=== PATIENT | male | born 1965 | race American Indian/Alaskan Native ===

== ENCOUNTER 2021-08-19 02:29 | Inpatient (IN) | payer SELFPAY ==
[2021-08-19] MEDS ORDERED: ASPIRIN 325 MG TAB PO ONE (02:45)
[2021-08-19 03:17] LABS: Basophils # (Auto) 0.1 K/mm3 (0.0-0.1); Eosinophils # (Auto) 0.3 K/mm3 (0.0-0.4); Hematocrit 43.7 % (35.5-45.6); Hemoglobin 14.4 gm/dl (11.8-15.2); Lymphocytes # (Auto) 1.5 K/mm3 (1.2-5.4); Lymphocytes % (Auto) 19.8 % (13.4-35.0); Mean Corpuscular HGB Conc 33 % (32-34); Mean Corpuscular Volume 86 fl (84-94); Monocytes # (Auto) 0.5 K/mm3 (0.0-0.8); Monocytes % (Auto) 6.6 % (0.0-7.3); Platelet Count 183 K/mm3 (140-440); Red Blood Count 5.07 M/mm3 (3.65-5.03); Red Cell Distribution Width 15.5 % (13.2-15.2)
[2021-08-19 03:42] LABS: Alanine Aminotransferase 23 units/L (7-56); Albumin 4.1 g/dL (3.9-5); BUN/Creatinine Ratio 14; Blood Urea Nitrogen 21 mg/dL (9-20); Calcium 9.9 mg/dL (8.4-10.2); Hemolysis Index 6
--- NOTE | 2021-08-19 03:53 | XRay Report ---
XR chest 1V ap INDICATION / CLINICAL INFORMATION: chestpain. COMPARISON: None available. FINDINGS: SUPPORT DEVICES: None. HEART /PULMONARY VASCULATURE: No significant abnormality. LUNGS / PLEURA: Shallow inspiration. No acute pulmonary or pleural abnormality. No pneumothorax. ADDITIONAL FINDINGS: No significant additional findings. IMPRESSION: 1. No acute findings. Signer Name: Doug Osullivan MD Signed: 08/19/2021 3:48 AM Workstation Name: [id number]
[2021-08-19] MEDS ORDERED: NITROGLYCERIN 0.4 MG TAB SUBL SL ONE (04:05)
[2021-08-19] MEDS ORDERED: SODIUM CHLORIDE 0.9% 500 ML 500 ML IV ONE (04:06)
--- NOTE | 2021-08-19 04:57 | Emergency Department Report ---
ED General Adult HPI - General Chief complaint: Chest Pain Stated complaint: CHEST PAIN Time Seen by Provider: 08/19/21 02:58 Source: patient, EMS Mode of arrival: Ambulatory Limitations: No Limitations - History of Present Illness Initial comments: Patient presents with complaints of chest pain, retrosternal, heavy/pressure, non-radiating, 8/10, not worsened or relieved by anything, associated with SOB. Denies palpitations, diaphoresis, leg swelling, pain in his calves, recent travel, immobilization, surgery, hospitalization, sex HRT use. Patient has a hx of CAD and is s/p [place] with stents x 2. - Related Data Allergies Allergy/AdvReac Type Severity Reaction Status Date / Time No Known Allergies Allergy Verified 08/19/21 03:04 ED Review of Systems ROS: Stated complaint: CHEST PAIN Other details as noted in HPI Comment: All other systems reviewed and negative Constitutional: denies: chills, fever ED Past Medical Hx - Past Medical History Previous Medical History?: Yes Hx Hypertension: Yes Hx Heart Attack/AMI: Yes Additional medical history: One Left Kidney - Surgical History Past Surgical History?: Yes Hx Coronary Stent: Yes - Social History Smoking Status: Former Smoker Substance Use Type: None ED Physical Exam - General Limitations: No Limitations General appearance: alert, in no apparent distress - Head Head exam: Present: atraumatic, normocephalic - Eye Eye exam: Present: PERRL, EOMI - ENT ENT exam: Present: mucous membranes moist, other (airway patent) - Neck Neck exam: Present: other (supple; no JVD) - Respiratory Respiratory exam: Present: other (good air entry, nml I:E, CTAB, no use of DELFINA) - Cardiovascular Cardiovascular Exam: Present: regular rate. Absent: rubs, gallop - GI/Abdominal GI/Abdominal exam: Present: soft, normal bowel sounds. Absent: distended, tenderness - Extremities Exam Extremities exam: Present: other (no lower extremity edema; non tender calves; neg Travis's sign bilaterally) - Back Exam Back exam: Present: full ROM. Absent: tenderness - Neurological Exam Neurological exam: Present: alert, oriented X3, CN II-XII intact. Absent: motor sensory deficit - Skin Skin exam: Present: warm, normal color ED Course Vital Signs 08/19/21 08/19/21 02:45 04:55 Temperature 98 F Pulse Rate 74 73 Respiratory 18 Rate Blood Pressure 193/101 192/97 O2 Sat by Pulse 99 Oximetry ED Medical Decision Making - Lab Data Result diagrams: 08/19/21 03:05 08/19/21 03:05 Laboratory Tests 08/19/21 08/19/21 03:05 03:05 WBC 7.4 RBC 5.07 H Hgb 14.4 Hct 43.7 MCV 86 MCH 28 MCHC 33 RDW 15.5 H Plt Count 183 Lymph % (Auto) 19.8 Bacon % (Auto) 6.6 Eos % (Auto) 4.0 Baso % (Auto) 1.0 Lymph # (Auto) 1.5 Bacon # (Auto) 0.5 Eos # (Auto) 0.3 Baso # (Auto) 0.1 Seg Neutrophils % 68.6 Seg Neutrophils # 5.1 Sodium 139 Potassium 3.8 Chloride 101.4 Carbon Dioxide 24 Anion Gap 17 BUN 21 H Creatinine 1.5 H Estimated GFR 59 BUN/Creatinine Ratio 14 Glucose 114 H Calcium 9.9 Total Bilirubin 0.30 AST 22 ALT 23 Alkaline Phosphatase 66 Troponin T < 0.010 Total Protein 7.6 Albumin 4.1 Albumin/Globulin Ratio 1.2 CXR: no acute cardiopulmonary process EKG: HR 72, SR, nml intervals, no significant ST elevations from isoelectric line in contiguous leads HEART score 6 - Medical Decision Making Received aspirin 324, NTG 0.4 mg SL x 1. CP resolved. BP in 160s/70s. Critical care attestation.: If time is entered above; I have spent that time in minutes in the direct care of this critically ill patient, excluding procedure time. ED Disposition Clinical Impression: Chest pain, CAD (coronary artery disease) Disposition: ADMITTED INPATIENT Is pt being admited?: Yes Does the pt Need Aspirin: No Condition: Stable Time of Disposition: 04:59 (Patient admitted to Dr. Hung. Sign out was given by me to the admitting physician. )
[2021-08-19] MEDS ORDERED: ACETAMINOPHEN 325 MG TAB PO PRN ×2 (05:26)
[2021-08-19] MEDS ORDERED: NITROGLYCERIN 0.4 MG TAB SUBL SL PRN (05:26)
[2021-08-19] MEDS ORDERED: traMADol 50 MG TAB PO PRN (05:26)
[2021-08-19] MEDS ORDERED: ONDANSETRON 4 MG/2 ML INJ IV PRN (05:26)
[2021-08-19] MEDS ORDERED: MORPHINE 4 MG/1 ML INJ IV PRN (05:26)
[2021-08-19] MEDS ORDERED: MORPHINE 2 MG/1 ML INJ IV PRN (05:26)
--- NOTE | 2021-08-19 05:38 | History and Physical Report ---
History of Present Illness Date of examination: 08/19/21 Date of admission: 08/19/2021 Chief complaint: Chest Pain History of present illness: 56-year-old -Citizen Of [place] male with known history of coronary artery disease with stent placement in the past presenting the emergency room today complaining of chest pain. Chest pain is said to be substernal and feels like pressure. No no relieving or exacerbating factor. Pain has been intermittent. On a scale of 10 pain was about 8/10 in severity. He has been no radiation. He has had associated shortness of breath denies any nausea vomiting, no abdominal pain. Denies any palpitation, no headache or dizziness and no diaphoresis. Work-up in the emergency room today, labs significant for BUN of 21 and creat inine of 1.5. Chest x-ray was unremarkable. Troponin has been negative. Patient being admitted for chest pain evaluation. Past History Past Medical History: acute [place], CAD, hypertension, other (Has 1 kidney) Past Surgical History: PTCA Social history: smoking (Former Smoker) Family history: no significant family history Medications and Allergies Allergies Allergy/AdvReac Type Severity Reaction Status Date / Time No Known Allergies Allergy Verified 08/19/21 03:04 Active Meds: Active Medications Acetaminophen (Acetaminophen 325 Mg Tab) 650 mg PO Q4H PRN PRN Reason: Pain MILD(1-3)/Fever >100.5/BAEZ Acetaminophen (Acetaminophen 325 Mg Tab) 650 mg PO Q6H PRN PRN Reason: Pain, Mild (1-3) Aspirin (Aspirin Ec 325 Mg Tab) 325 mg PO QDAY JEISON Magnesium Hydroxide (Magnesium Hydroxide (Mom) Oral Liqd Udc) 30 ml PO Q4H PRN PRN Reason: Constipation Morphine Sulfate (Morphine 2 Mg/1 Ml Inj) 2 mg IV Q4H PRN PRN Reason: Pain, Moderate (4-6) Morphine Sulfate (Morphine 4 Mg/1 Ml Inj) 4 mg IV Q4H PRN PRN Reason: Pain , Severe (7-10) Morphine Sulfate (Morphine 4 Mg/1 Ml Inj) 2 mg IV Q5MIN PRN PRN Reason: Chest Pain unrelieved by NTG Nitroglycerin (Nitroglycerin 0.4 Mg Tab Subl) 0.4 mg SL Q5M PRN PRN Reason: Chest Pain Ondansetron HCl (Ondansetron 4 Mg/2 Ml Inj) 4 mg IV Q8H PRN PRN Reason: Nausea And Vomiting Sodium Chloride (Sodium Chloride 0.9% 10 Ml Flush Syringe) 10 ml IV BID JEISON Sodium Chloride (Sodium Chloride 0.9% 10 Ml Flush Syringe) 10 ml IV PRN PRN PRN Reason: LINE FLUSH Sodium Chloride (Sodium Chloride 0.9% 10 Ml Flush Syringe) 10 ml IV PRN PRN PRN Reason: LINE FLUSH Tramadol HCl (Tramadol 50 Mg Tab) 50 mg PO Q6H PRN PRN Reason: Pain, Moderate (4-6) Review of Systems Constitutional: no fever, no chills Ears, nose, mouth and throat: no nasal congestion, no sore throat Cardiovascular: chest pain, no orthopnea, no palpitations Respiratory: no cough, no shortness of breath Gastrointestinal: no abdominal pain, no nausea, no vomiting, no diarrhea Genitourinary Male: no dysuria, no hematuria, no flank pain Musculoskeletal: no neck pain, no low back pain Integumentary: no rash, no pruritis Neurological: no headaches, no confusion Psychiatric: no anxiety, no depression Endocrine: no polyphagia, no excessive thirst, no polydipsia, no polyuria Exam - Constitutional Vitals: Temp Pulse Resp BP Pulse Ox 98 F 73 18 192/97 99 08/19/21 02:45 08/19/21 04:55 08/19/21 02:45 08/19/21 04:55 08/19/21 02:45 General appearance: Present: no acute distress, well-nourished - EENT Eyes: Present: PERRL, EOM intact. Absent: scleral icterus ENT: hearing intact, clear oral mucosa, dentition normal - Neck Neck: Present: supple, normal ROM - Respiratory Respiratory effort: normal Respiratory: bilateral: CTA - Cardiovascular Rhythm: regular Heart Sounds: Present: S1 & S2. Absent: gallop, systolic murmur, diastolic murmur, rub, click - Extremities Extremities: no ischemia, pulses intact, pulses symmetrical, No edema, normal temperature, normal color, Full ROM Peripheral Pulses: within normal limits - Abdominal General gastrointestinal: Present: soft, non-tender, non-distended, normal bowel sounds. Absent: mass - Integumentary Integumentary: Present: clear, warm, dry, normal turgor. Absent: rash - Musculoskeletal Musculoskeletal: strength equal bilaterally - Psychiatric Psychiatric: appropriate mood/affect, intact judgment & insight, memory intact, cooperative - Neurologic Neurologic: CNII-XII intact, no focal deficits, moves all extremities HEART Score - HEART Score History: Slightly suspicious EKG: Non-specific Age: 45-65 Risk factors: > 3 risk factors or hx of atherosclerotic disease Troponin: Troponin T < 0.010 ng/mL (0.00-0.029) 08/19/21 03:05 Troponin: < normal limit HEART Score: 4 Results - Labs CBC & Chem 7: 08/19/21 03:05 08/19/21 03:05 Labs: Abnormal lab results 08/19/21 08/19/21 Range/Units 03:05 03:05 RBC 5.07 H (3.65-5.03) M/mm3 RDW 15.5 H (13.2-15.2) % BUN 21 H (9-20) mg/dL Creatinine 1.5 H (0.8-1.3) mg/dL Glucose 114 H (75-100) mg/dL Assessment and Plan - Patient Problems (1) Chest pain Current Visit: Yes Status: Acute Plan to address problem: Patient admitted and placed on telemetry. We will commence on daily aspirin, sublingual nitroglycerin and IV morphine as needed for chest pain. Patient will be scheduled for stress test and echocardiogram. Consult placed to cardiology for evaluation. (2) CAD (coronary artery disease) Current Visit: Yes Status: Acute Plan to address problem: Patient is status post stent placement at [facility] in 2020. Will continue on routine home medications. (3) TRAVIS (acute kidney injury) Current Visit: Yes Status: Acute Plan to address problem: Baseline BUN and creatinine unknown. Will monitor chemistry. Consult placed to nephrology for evaluation. (4) DVT prophylaxis Current Visit: Yes Status: Acute Plan to address problem: Patient placed on subcutaneous heparin. (5) Full code status Current Visit: Yes Status: Acute Plan to address problem: Patient is full code.
[2021-08-19 06:32] LABS: BUN/Creatinine Ratio 15; Blood Urea Nitrogen 21 mg/dL (9-20); Calcium 9.5 mg/dL (8.4-10.2); Hemolysis Index 7
[2021-08-19] MEDS: HEPARIN 5,000 UNIT/1 ML VIAL SUB-Q SCH ×3 (06:50→21:47)
--- NOTE | 2021-08-19 08:32 | Consultation ---
History of Present Illness - History of Present Illness Thank you for the consultation ! Patient was evaluated today, My assessment and plan are as follows Elevated creatinine the patient is a 56-year-old with uncontrolled hypertension history of coronary artery disease myocardial infarction with solitary kidney, patients with solitary kidney can have elevated creatinine, however patient does have multiple risk factors for underlying chronic kidney disease and its progression over time given the history of coronary artery disease it also makes him higher risk for underlying renovascular disease #Accelerated hypertension could be multifactorial due to chest pain, anxiety, renovascular disease given the history of coronary artery disease and [place], must rule out any possibility of secondary hypertension, close monitoring follow-up, #Chest pain work-up currently in progress, if cardiac catheterization is required patient will be at mild to moderate risk for radiocontrast nephropathy, to be monitored, #Coronary disease s/p stent placement in 2019 at [place] #Solitary functioning kidney: Patient states that he has known about the solitary kidney function and is being followed by [facility] he was told that his one of the kidney was not functioning well Renal care was discussed with patient maintain lifestyle changes, risk factor modification and follow-up in the office Contact information has been provided to the patient to make an appointment follow-up in a week or 2 upon discharge If you have any question in regards to this patient renal care please feel free to contact me at [phone] Author: Wale Crum M.D. [facility], 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,[facility]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 Currently not on any nephrotoxic medications blood pressure is much better controlled at 126/75, Past medical history: Hypertension Coronary artery disease Solitary kidney PTCA Current allergies: Reviewed from the current chart Social history: Reviewed from the current chart Former smoker Family history: Reviewed from the current chart Review of system: Positive for chest pain shortness of breath, uncontrolled hypertension All other review of systems negative Physical examination Vitals: Reviewed General: No acute distress HEENT: Oral mucosa moist no pallor or icterus Neck: Supple without any JVD thyromegaly or nodular mass Chest: Clear to auscultation Heart: Regular rate and rhythm S1-S2 heard no S3-S4 Abdomen: Soft nontender, bowel sounds present no renal bruit no suprapubic mass es no CVA tenderness noted Extremity: Minimal edema dry skin no peripheral cyanosis Endocrine: Thyroid not enlarged Psychiatric: No agitation and aggression noted Musculoskeletal: No joint effusion noted Labs and x-rays: Reviewed from this admission Past History Past Medical History: acute [place], CAD, hypertension, other (Has 1 kidney) Past Surgical History: PTCA Social history: smoking (Former Smoker) Family history: no significant family history Medications and Allergies Allergies Allergy/AdvReac Type Severity Reaction Status Date / Time No Known Allergies Allergy Verified 08/19/21 03:04 Home Medications Medication Instructions Recorded Confirmed Last Taken Type Aspirin [Adult Aspirin] 81 mg PO DAILY 08/19/21 08/19/21 08/18/21 History Clopidogrel [Plavix] 75 mg PO DAILY 08/19/21 08/19/21 08/18/21 History Fosinopril Sodium 20 mg PO DAILY 08/19/21 08/19/21 08/18/21 History Metoprolol Succinate 50 mg PO DAILY 08/19/21 08/19/21 08/18/21 History Rosuvastatin Calcium 20 mg PO DAILY 08/19/21 08/19/21 08/18/21 History Active Meds: Active Medications Acetaminophen (Acetaminophen 325 Mg Tab) 650 mg PO Q4H PRN PRN Reason: Pain MILD(1-3)/Fever >100.5/BAEZ Aspirin (Aspirin Ec 325 Mg Tab) 325 mg PO QDAY JEISON Heparin Sodium (Porcine) (Heparin 5,000 Unit/1 Ml Vial) 5,000 unit SUB-Q Q8HR [facility] Last Admin: 08/19/21 06:50 Dose: 5,000 unit Magnesium Hydroxide (Magnesium Hydroxide (Mom) Oral Liqd Udc) 30 ml PO Q4H PRN PRN Reason: Constipation Morphine Sulfate (Morphine 2 Mg/1 Ml Inj) 2 mg IV Q4H PRN PRN Reason: Pain, Moderate (4-6) Morphine Sulfate (Morphine 4 Mg/1 Ml Inj) 4 mg IV Q4H PRN PRN Reason: Pain , Severe (7-10) Morphine Sulfate (Morphine 4 Mg/1 Ml Inj) 2 mg IV Q5MIN PRN PRN Reason: Chest Pain unrelieved by NTG Nitroglycerin (Nitroglycerin 0.4 Mg Tab Subl) 0.4 mg SL Q5M PRN PRN Reason: Chest Pain Last Admin: 08/19/21 05:40 Dose: 0.4 mg Ondansetron HCl (Ondansetron 4 Mg/2 Ml Inj) 4 mg IV Q8H PRN PRN Reason: Nausea And Vomiting Sodium Chloride (Sodium Chloride 0.9% 10 Ml Flush Syringe) 10 ml IV BID JEISON Sodium Chloride (Sodium Chloride 0.9% 10 Ml Flush Syringe) 10 ml IV PRN PRN PRN Reason: LINE FLUSH Sodium Chloride (Sodium Chloride 0.9% 10 Ml Flush Syringe) 10 ml IV PRN PRN PRN Reason: LINE FLUSH Tramadol HCl (Tramadol 50 Mg Tab) 50 mg PO Q6H PRN PRN Reason: Pain, Moderate (4-6) Last Admin: 08/19/21 08:28 Dose: 50 mg Exam - Vital Signs Vital signs: Vital Signs Temp Pulse Resp BP Pulse Ox 98 F 74 18 193/101 99 08/19/21 02:45 08/19/21 02:45 08/19/21 02:45 08/19/21 02:45 08/19/21 02:45 Results - Lab Results 08/19/21 03:05 08/19/21 06:03 Most recent lab results Calcium 9.5 mg/dL (8.4-10.2) 08/19/21 06:03
[2021-08-19] MEDS: MAGNESIUM HYDROXIDE (MOM) ORAL LIQD UDC PO PRN (08:35)
[2021-08-19] MEDS: MORPHINE 4 MG/1 ML INJ IV PRN ×2 (09:25→13:06)
[2021-08-19] MEDS ORDERED: ASPIRIN EC 81 MG TAB PO SCH (11:00)
[2021-08-19] MEDS ORDERED: METOPROLOL SUCCINATE 50 MG PO SCH (11:00)
--- NOTE | 2021-08-19 11:03 | Event Note ---
Date: 08/19/21 Patient seen at bedside with girlfriend. Patient reports compliance with medication but has had a productive cough for the last 3 months. Denies PND, orthopnea and lower extremity swelling. Currently chest pain-free. Experiencing right upper quadrant abdominal pain that worsens with inspiration. He has a history of PA in August 2019 and has not had a diagnosis of CHF. He also has 1 functioning kidney. Ordered abdominal ultrasound. We will continue with current care plan stated in H&P.
--- NOTE | 2021-08-19 11:12 | Consultation ---
History of Present Illness Consult date: 08/19/21 Consult reason: chest pain History of present illness: 56-year-old male with past medical history of CAD status post stent at [place] in 2019, hypertension, and solitary kidney is admitted with chest discomfort. Patient reports pressure-like chest discomfort which has improved. At present, he has lower abdominal pain associated with shortness of breath. 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 Work-up in the ED notable for EKG without acute ischemic changes, troponin x3 is negative, creatinine slightly elevated (1.5-1.4). Of note, patient's blood pressure is markedly elevated since admission, approximately 190/100. Past History Past Medical History: acute PR, CAD, hypertension, other (Has 1 kidney) Past Surgical History: PTCA Social history: smoking (Former Smoker) Family history: no significant family history Medications and Allergies Allergies Allergy/AdvReac Type Severity Reaction Status Date / Time No Known Allergies Allergy Verified 08/19/21 03:04 Home Medications Medication Instructions Recorded Confirmed Last Taken Type Aspirin [Adult Aspirin] 81 mg PO DAILY 08/19/21 08/19/21 08/18/21 History Clopidogrel [Plavix] 75 mg PO DAILY 08/19/21 08/19/21 08/18/21 History Fosinopril Sodium 20 mg PO DAILY 08/19/21 08/19/21 08/18/21 History Metoprolol Succinate 50 mg PO DAILY 08/19/21 08/19/21 08/18/21 History Rosuvastatin Calcium 20 mg PO DAILY 08/19/21 08/19/21 08/18/21 History Active Meds: Active Medications Acetaminophen (Acetaminophen 325 Mg Tab) 650 mg PO Q4H PRN PRN Reason: Pain MILD(1-3)/Fever >100.5/BAEZ Aspirin (Aspirin Ec 325 Mg Tab) 325 mg PO QDAY JEISON Atorvastatin Calcium (Atorvastatin 40 Mg Tab) 40 mg PO QHS JEISON Clopidogrel Bisulfate (Clopidogrel 75 Mg Tab) 75 mg PO DAILY [facility] Heparin Sodium (Porcine) (Heparin 5,000 Unit/1 Ml Vial) 5,000 unit SUB-Q Q8HR JEISON Last Admin: 08/19/21 06:50 Dose: 5,000 unit Lisinopril (Lisinopril 20 Mg Tab) 20 mg PO QDAY [facility] Magnesium Hydroxide (Magnesium Hydroxide (Mom) Oral Liqd Udc) 30 ml PO Q4H PRN PRN Reason: Constipation Last Admin: 08/19/21 08:35 Dose: 30 ml Miscellaneous Medication (Metoprolol Succinate) 50 mg PO DAILY [facility] Morphine Sulfate (Morphine 2 Mg/1 Ml Inj) 2 mg IV Q4H PRN PRN Reason: Pain, Moderate (4-6) Morphine Sulfate (Morphine 4 Mg/1 Ml Inj) 4 mg IV Q4H PRN PRN Reason: Pain , Severe (7-10) Last Admin: 08/19/21 09:25 Dose: 4 mg Morphine Sulfate (Morphine 4 Mg/1 Ml Inj) 2 mg IV Q5MIN PRN PRN Reason: Chest Pain unrelieved by NTG Nitroglycerin (Nitroglycerin 0.4 Mg Tab Subl) 0.4 mg SL Q5M PRN PRN Reason: Chest Pain Last Admin: 08/19/21 05:40 Dose: 0.4 mg Ondansetron HCl (Ondansetron 4 Mg/2 Ml Inj) 4 mg IV Q8H PRN PRN Reason: Nausea And Vomiting Sodium Chloride (Sodium Chloride 0.9% 10 Ml Flush Syringe) 10 ml IV BID JEISON Last Admin: 08/19/21 09:26 Dose: 10 ml Sodium Chloride (Sodium Chloride 0.9% 10 Ml Flush Syringe) 10 ml IV PRN PRN PRN Reason: LINE FLUSH Sodium Chloride (Sodium Chloride 0.9% 10 Ml Flush Syringe) 10 ml IV PRN PRN PRN Reason: LINE FLUSH Tramadol HCl (Tramadol 50 Mg Tab) 50 mg PO Q6H PRN PRN Reason: Pain, Moderate (4-6) Last Admin: 08/19/21 08:28 Dose: 50 mg Physical Examination Vital Signs Temp Pulse Resp BP Pulse Ox 98 F 74 18 193/101 99 08/19/21 02:45 08/19/21 02:45 08/19/21 02:45 08/19/21 02:45 08/19/21 02:45 Results 08/19/21 03:05 08/19/21 06:03 Cardiac Enzymes 08/19/21 Range/Units 03:05 AST 22 (5-40) units/L CBC 08/19/21 Range/Units 03:05 WBC 7.4 (4.5-11.0) K/mm3 RBC 5.07 H (3.65-5.03) M/mm3 Hgb 14.4 (11.8-15.2) gm/dl Hct 43.7 (35.5-45.6) % Plt Count 183 (140-440) K/mm3 Lymph # (Auto) 1.5 (1.2-5.4) K/mm3 [place] # (Auto) 0.5 (0.0-0.8) K/mm3 Eos # (Auto) 0.3 (0.0-0.4) K/mm3 Baso # (Auto) 0.1 (0.0-0.1) K/mm3 Comprehensive Metabolic Panel 08/19/21 08/19/21 Range/Units 03:05 06:03 Sodium 139 137 (137-145) mmol/L Potassium 3.8 3.9 (3.6-5.0) mmol/L Chloride 101.4 100.5 (98-107) mmol/L Carbon Dioxide 24 25 (22-30) mmol/L BUN 21 H 21 H (9-20) mg/dL Creatinine 1.5 H 1.4 H (0.8-1.3) mg/dL Glucose 114 H 118 H (75-100) mg/dL Calcium 9.9 9.5 (8.4-10.2) mg/dL AST 22 (5-40) units/L ALT 23 (7-56) units/L Alkaline Phosphatase 66 (35-129) units/L Total Protein 7.6 (6.3-8.2) g/dL Albumin 4.1 (3.9-5) g/dL Tele - SR 08/19/21 EKG -SR Assessment and Plan #Chest discomfort #CAD status post stent at [place] in 2019 #Abdominal pain #HypertensionBP uncontrolled since admission #Solitary kidney/elevated creatinine #Obesity ACS ruled out. Continue ASA, plavix, and statin. Will check echo and stress test. BP possibly elevated due to abdominal pain. Patient does not appear to have received BP meds today; would resume home medications.
--- NOTE | 2021-08-19 13:01 | Ultrasound Report ---
ULTRASOUND ABDOMEN, COMPLETE INDICATION: RUQ abdominal pain. COMPARISON: No relevant prior imaging study available. FINDINGS: Pancreas: Obscured by bowel gas. Abdominal Aorta: No significant abnormality. IVC: No significant abnormality. Liver: No significant abnormality. Gallbladder: No significant abnormality. Bile ducts: No significant abnormality. Common bile duct measures 3.4 mm. Kidneys: The right kidney is absent. The left kidney is multicystic with a traveling sales representative mid pole [address] st measuring up to 6 cm. No other significant abnormality. Spleen: No significant abnormality. Free fluid: None. Additional Findings: None. IMPRESSION: 1. No acute findings to explain the patient's right upper quadrant pain. 2. Additional findings as above. Signer Name: Jewel Ansari MD Signed: 08/19/2021 12:56 PM Workstation Name: [id number]
[2021-08-19] MEDS: CLOPIDOGREL 75 MG TAB PO SCH (13:05)
[2021-08-19] MEDS: METOPROLOL SUCCINATE XL 50 MG TAB PO SCH (13:05)
[2021-08-19] MEDS: LISINOPRIL 20 MG TAB PO SCH (13:05)
[2021-08-20] MEDS: MORPHINE 4 MG/1 ML INJ IV PRN (03:32)
[2021-08-20 04:14] LABS: Amphetamine Screen,Urine PRESUMPTIVE NEGATIVE; Benzodiazepines Screen,Urine PRESUMPTIVE NEGATIVE; Cannabinoid Screen,Urine PRESUMPTIVE POSITIVE; Cocaine Screen,Urine PRESUMPTIVE NEGATIVE; Methadone Screen,Urine PRESUMPTIVE NEGATIVE; Opiate Screen,Urine PRESUMPTIVE NEGATIVE
[2021-08-20 05:40] LABS: BUN/Creatinine Ratio 11; Blood Urea Nitrogen 16 mg/dL (9-20); Calcium 9.3 mg/dL (8.4-10.2); Hemolysis Index 3
[2021-08-20] MEDS: HEPARIN 5,000 UNIT/1 ML VIAL SUB-Q SCH ×2 (05:59→14:40)
[2021-08-20] MEDS ORDERED: REGADENOSON 0.4 MG/5 ML INJ IV ONE (08:21)
[2021-08-20] MEDS ORDERED: ASPIRIN EC 325 MG TAB PO SCH (10:00)
--- NOTE | 2021-08-20 11:03 | Progress Note ---
Subjective Date of service: 08/20/21 Interval history: Impression/plan: CKD: cr is 1.4 and stable, followed by [place] [facility] #Accelerated hypertension could be multifactorial due to chest pain, anxiety, renovascular disease given the history of coronary artery disease and NE, must rule out any possibility of secondary hypertension, close monitoring follow-up, #Chest pain work-up currently in progress, if cardiac catheterization is required patient will be at mild to moderate risk for radiocontrast nephropathy, to be monitored, #Coronary disease s/p stent placement in 2019 at [place] #Solitary functioning kidney: Patient states that he has known about the [facility] kidney function and is being followed by [facility] he was told that his one of the kidney was not functioning well Renal care was discussed with patient maintain lifestyle changes, risk factor modification and follow-up in the office Contact information has been provided to the patient to make an appointment follow-up in a week or 2 upon discharge History of present illness Patient has a history of solitary kidney,And he has been followed by [facility] Does not remember seeing a manager general however no acute events noted overnight examination Vitals: Reviewed General: No acute distress HEENT: Oral mucosa moist no pallor or icterus Neck: Supple without any JVD thyromegaly or nodular mass Chest: Clear to auscultation Heart: Regular rate and rhythm S1-S2 heard no S3-S4 Abdomen: Soft nontender, bowel sounds present no renal bruit no suprapubic masses no CVA tenderness noted Extremity: Minimal edema dry skin no peripheral cyanosis Endocrine: Thyroid not enlarged Psychiatric: No agitation and aggression noted Musculoskeletal: No joint effusion noted Objective - Vital Signs Vital signs: Vital Signs - 12hr 08/19/21 08/20/21 08/20/21 23:32 03:27 03:32 Temperature 99.4 F 100.3 F H Pulse Rate 89 93 H Pulse Rate [ Apical] Respiratory 20 20 18 Rate Blood Pressure 148/82 166/95 O2 Sat by Pulse 94 93 Oximetry 08/20/21 08/20/21 08/20/21 05:58 07:48 08:00 Temperature 97.0 F L Pulse Rate 92 H Pulse Rate [ 88 Apical] Respiratory 18 20 Rate Blood Pressure 151/100 O2 Sat by Pulse 98 96 Oximetry - Lab 08/19/21 03:05 08/20/21 04:34 Most recent lab results Calcium 9.3 mg/dL (8.4-10.2) 08/20/21 04:34 Medications & Allergies - Medications Allergies/Adverse Reactions: Allergies No Known Allergies Allergy (Verified 08/19/21 03:04) Home Medications: Home Medications Medication Instructions Recorded Confirmed Last Taken Type Aspirin [Adult Aspirin] 81 mg PO DAILY 08/19/21 08/19/21 08/18/21 History Clopidogrel [Plavix] 75 mg PO DAILY 08/19/21 08/19/21 08/18/21 History Fosinopril Sodium 20 mg PO DAILY 08/19/21 08/19/21 08/18/21 History Metoprolol Succinate 50 mg PO DAILY 08/19/21 08/19/21 08/18/21 History Rosuvastatin Calcium 20 mg PO DAILY 08/19/21 08/19/21 08/18/21 History Active Medications: Generic Name Dose Route Start Last Admin Trade Name Freq PRN Reason Stop Dose Admin Acetaminophen 650 mg 08/19/21 05:26 08/20/21 05:58 Acetaminophen 325 Mg Tab PO 650 mg Q4H PRN Administration Pain MILD(1-3)/Fever >100.5/BAEZ Aspirin 325 mg 08/20/21 10:00 Aspirin Ec 325 Mg Tab PO QDAY JEISON Atorvastatin Calcium 40 mg 08/19/21 22:00 08/19/21 21:47 Atorvastatin 40 Mg Tab PO 40 mg QHS JEISON Administration Clopidogrel Bisulfate 75 mg 08/19/21 12:00 08/19/21 13:05 Clopidogrel 75 Mg Tab PO 75 mg DAILY JEISON Administration Heparin Sodium (Porcine) 5,000 unit 08/19/21 06:00 08/20/21 05:59 Heparin 5,000 Unit/1 Ml Vial SUB-Q 5,000 unit Q8HR JEISON Administration Lisinopril 20 mg 08/19/21 12:00 08/19/21 13:05 Lisinopril 20 Mg Tab PO 20 mg QDAY JEISON Administration Magnesium Hydroxide 30 ml 08/19/21 05:26 08/19/21 08:35 Magnesium Hydroxide (Mom) Oral Liqd Udc PO 30 ml Q4H PRN Administration Constipation Metoprolol Succinate 50 mg 08/19/21 12:00 08/19/21 13:05 Metoprolol Succinate Xl 50 Mg Tab PO 50 mg QDAY JEISON Administration Morphine Sulfate 2 mg 08/19/21 05:26 Morphine 2 Mg/1 Ml Inj IV Q4H PRN Pain, Moderate (4-6) Morphine Sulfate 4 mg 08/19/21 05:26 08/20/21 03:32 Morphine 4 Mg/1 Ml Inj IV 4 mg Q4H PRN Administration Pain , Severe (7-10) Morphine Sulfate 2 mg 08/19/21 05:26 Morphine 4 Mg/1 Ml Inj IV Q5MIN PRN Chest Pain unrelieved by NTG Nitroglycerin 0.4 mg 08/19/21 05:26 08/19/21 05:40 Nitroglycerin 0.4 Mg Tab Subl SL 0.4 mg Q5M PRN Administration Chest Pain Ondansetron HCl 4 mg 08/19/21 05:26 Ondansetron 4 Mg/2 Ml Inj IV Q8H PRN Nausea And Vomiting Sodium Chloride 10 ml 08/19/21 10:00 08/19/21 21:47 Sodium Chloride 0.9% 10 Ml Flush Syringe IV 10 ml BID JEISON Administration Sodium Chloride 10 ml 08/19/21 05:26 Sodium Chloride 0.9% 10 Ml Flush Syringe IV PRN PRN LINE FLUSH Tramadol HCl 50 mg 08/19/21 05:26 08/19/21 08:28 Tramadol 50 Mg Tab PO 50 mg Q6H PRN Administration Pain, Moderate (4-6)
--- NOTE | 2021-08-20 12:30 | Progress Note ---
Assessment and Plan - Patient Problems (1) Chest pain Current Visit: Yes Status: Acute Plan to address problem: Patient has a history of coronary artery disease and prior coronary stenting reportedly 2 years ago at [place]. Serial ECGs and cardiac enzymes are negative, he was ordered for a Lexiscan thallium stress test today, the test has been completed and results are pending. Subjective Date of service: 08/20/21 Principal diagnosis: Chest pain Interval history: Patient is comfortable, no new cardiac complaints, no new cardiac events reported. He completed a Lexiscan thallium stress test today, results are pending. Objective Vital Signs Temp Pulse Pulse Resp BP Pulse Ox 08/20/21 08:00 88 96 08/20/21 07:48 97.0 F L 92 H 20 151/100 98 08/20/21 05:58 18 08/20/21 03:32 18 08/20/21 03:27 100.3 F H 93 H 20 166/95 93 08/19/21 23:32 99.4 F 89 20 148/82 94 08/19/21 19:41 97 08/19/21 19:36 84 08/19/21 19:35 99.6 F 91 H 20 150/71 91 08/19/21 17:00 84 08/19/21 15:24 98.0 F 90 18 141/99 95 08/19/21 13:04 146/97 - Physical Examination General: No Apparent Distress HEENT: Positive: PERRL Neck: Positive: neck supple Cardiac: Positive: Reg Rate and Rhythm Lungs: Positive: clear to auscultation Neuro: Positive: Grossly Intact Abdomen: Positive: Soft Skin: Positive: Clear Extremities: Absent: edema - Labs and Meds Comprehensive Metabolic Panel 08/20/21 Range/Units 04:34 Sodium 136 L (137-145) mmol/L Potassium 4.1 (3.6-5.0) mmol/L Chloride 99.3 (98-107) mmol/L Carbon Dioxide 24 (22-30) mmol/L BUN 16 (9-20) mg/dL Creatinine 1.4 H (0.8-1.3) mg/dL Glucose 93 (75-100) mg/dL Calcium 9.3 (8.4-10.2) mg/dL
[2021-08-20] MEDS: METOPROLOL SUCCINATE XL 50 MG TAB PO SCH (12:41)
[2021-08-20] MEDS: LISINOPRIL 20 MG TAB PO SCH (12:41)
[2021-08-20] MEDS: CLOPIDOGREL 75 MG TAB PO SCH (12:41)
--- NOTE | 2021-08-20 12:55 | Nuclear Medicine Report ---
APPROVED REPORT Exam: Nuclear Stress Test Indication: Chest pain [facility] #: A[facility] Ht: 5 ft 7 in Wt: 260 lbs BSA: 2.26 m2 HR: 100 bpmBP: 163/112 mmHgBMI: 40.71 Rhythm: Sinus Tachycardia Stress Test Details Stress Test: Pharmacologic stress testing performed using 0.4 mg of regadenoson per 5 mL given IV over 10 seconds. Reason for pharmacologic stress test: physical limitation. HR Resting HR: 98 bpm Max HR Achieved: 126 bpm Max Heart Rate (APMHR): 164 bpm Target HR (85% APMHR): 139 bpm % of APMHR: 76 Recovery HR: 119 bpm HR response to stress: Normal HR response to stress BP Resting BP: 163/92 mmHg Max BP: 171/112 mmHg Recovery BP: 128/98 mmHg BP response to stress: Abnormal hypertensive response to stress. ECG Resting ECG: Sinus Rhythm Stress ECG: Sinus Tachycardia ST Change: None Arrhythmia: None Recovery ECG: Sinus Tachycardia Recovery ST Change: None Recovery Arrhythmia: None Clinical Reason for Termination: Completed protocol Stress Symptoms: None Stress ECG Conclusion No chest pain, no ST changes of ischemia with pharmacologic stress. Myocardial perfusion images are pending. NM EXAM: Myocardial Perfusion REST/STRESS Resting Data Rest SPECT myocardial perfusion imaging was performed in supine position 45 minutes following the intravenous injection of 10 mCi of Tc-99m Myoview. Time of rest injection: 0715 Date: 08/20/2021 Pharmacologic Stress Pharmacologic stress test was performed by injecting Regadenoson 0.4 mg IV push followed by the intravenous injection of 28 mCi of Tc-99m Myoview. Time of stress injection: 1115 Date: 08/20/2021 Gated Stress SPECT was performed 30 minutes after stress injection. The images were gated to evaluate regional wall motion and calculate left ventricular ejection fraction. Study Data TID = 0.93. Perfusion Wall Motion Normal left ventricular systolic function, ejection fraction calculated at 63%. Nuclear Conclusion ECG Findings: negative for ischemia Clinical Findings: negative for ischemia Nuclear Findings: negative for ischemia Left Ventricular Function: normal Risk Study: low Normal rest and stress myocardial perfusion images. Mild diaphragmatic attenuation artifact noted. Normal left ventricular systolic function, ejection fraction 63%. Negative study. Conclusion No chest pain, no ST changes of ischemia with pharmacologic stress. Myocardial perfusion images are pending.
[2021-08-20] MEDS: MAGNESIUM HYDROXIDE (MOM) ORAL LIQD UDC PO PRN (12:58)
[2021-08-20] MEDS ORDERED: guaiFENesin 200 MG TAB PO PRN (13:20)
[2021-08-20] MEDS ORDERED: SIMETHICONE 80 MG CHEW TAB PO ONE (13:21)
--- NOTE | 2021-08-20 16:44 | Discharge Summary ---
Providers - Providers Date of Admission: 08/19/21 06:42 Date of discharge: 08/20/21 Attending physician: ROGE MCCULLOUGH MD 08/19/21 Consult to Cardiac Rehabilitation [CONS] Routine Reason For Exam: Phase I 08/19/21 05:27 Consult to Cardiology [CONS] Routine Consulting Provider: GINA WOODS Reason For Exam: chest pain 08/19/21 05:58 Consult to Physician [CONS] Routine Comment: Consulting Provider: DAX MIMS Physician Instructions: Reason For Exam: TRAVIS Primary care physician: RAY GALDAMEZ Hospitalization Condition: Stable Exam - Physical Exam Narrative exam: GENERAL: Well-developed well-nourished. Sitting on the side of the bed in no acute distress. HEENT: Normocephalic. Atraumatic. NECK: Supple. CHEST/LUNGS: CTAB on room air HEART/CARDIOVASCULAR: RRR. No murmur, rubs or gallops appreciated. ABDOMEN: +BS. NT/ND. SKIN: No rashes noted. NEURO: No focal motor deficit. Follows all commands and is ambulatory. MUSCULOSKELETAL: No joint effusion EXTREMITIES: No cyanosis, cubbing or edema. PSYCH: Cooperative. - Constitutional Vitals: Temp Pulse Resp BP Pulse Ox 97 F L 116 H 18 153/99 96 08/20/21 12:00 08/20/21 12:00 08/20/21 12:00 08/20/21 12:00 08/20/21 12:00 Plan Care Plan Goals: Your stress test was negative. Please follow-up with your outpatient fish icer and primary care doctor. Continue taking all your medications as prescribed. Follow up with: RAY GALDAMEZ MD [Primary Care Provider] - 7 Days Prescriptions: Aspirin EC [Ecotrin] 325 mg PO QDAY 30 Days #30 tablet guaiFENesin [Robitussin] 200 mg PO Q6H PRN 14 Days #56 tablet PRN Reason: Cough
[2021-08-20 16:53] VITALS: BP 156/104
--- NOTE | 2021-08-21 18:44 | Electrocardiograph Report ---
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
--- NOTE | 2021-08-21 18:45 | Electrocardiograph Report ---
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
--- NOTE | 2021-08-22 09:57 | Electrocardiograph Report ---
[facility] Test Date: 2021-08-19 Test Time: 13:15:36 Pat Name: VIRI EDWARDS Department: Room: A466 1 Gender: M Rn Wellness: PEGGY : 1965 Requested By: NANCY ZAVALETA Order Number: [id number] Reading MD: Jose Alfredo Samson Measurements Intervals [place] Rate: 87 P: 40 VA: 208 QRS: 31 QRSD: 99 T: 117 QT: 369 QTc: 444 Interpretive Statements Sinus rhythm Borderline prolonged VA interval Probable left atrial enlargement Consider left ventricular hypertrophy ST elevation, consider anterior injury Compared to ECG 08/19/2021 02:59:[address] elevation is now evident Electronically Signed On 08-22-2021 9:57:42 EDT by Jose Alfredo Samson
== END 2021-08-20 17:45 | disposition home or self-care (01) | DRG 313 ==
LOC: ED 02:29 → 4A 06:42
PROVIDERS: ADMIT Internal Medicine Geriatric Medicine; ATTEND Student in an Organized Health Care Education/Training Program
DX: R07.89 Other chest pain (principal); I25.10 Atherosclerotic heart disease of native coronary artery without angina pectoris; I25.2 Old myocardial infarction; Z95.5 Presence of coronary angioplasty implant and graft; Z87.891 Personal history of nicotine dependence; F41.9 Anxiety disorder, unspecified; E66.9 Obesity, unspecified; N18.9 Chronic kidney disease, unspecified
CPT/HCPCS: 36415; 71045; 76700; 78452; 80048; 80053; 80307; 84484; 85025; 93005; 93017; 93306; G0378; A9502; C8929; J1644; J2270; J2785; J7040